=== PATIENT | female | born 1995 | race Two or more races ===

== ENCOUNTER 2025-03-17 15:21 | Emergency (ER) | payer OTHER ==
[~2025-03-17] VITALS: Ht 162.6 cm; Wt 54.4 kg
[2025-03-17] MEDS ORDERED: GABA300C PO (15:28)
[2025-03-17] MEDS ORDERED: METF-440 PO (15:28)
[2025-03-17 16:21] LABS: PLATELET COUNT (AUTO) 263 K/uL (179-408); RED BLOOD CELL COUNT(AUTO) 5.04 MIL/uL (3.63-4.92); RED CELL DISTRIBUTION WIDTH 15.8 % (12.3-17.7); WHITE BLOOD COUNT (AUTO) 7.7 K/uL (3.8-11.8)
[2025-03-17 16:29] LABS: CREATININE 0.4 mg/dL (0.6-1.3); SODIUM SERUM 137 mmol/L (136-145); UREA NITROGEN, BLOOD 17 mg/dL (7-18)
[2025-03-17 16:35] LABS: ASPARTATE AMINOTRANSFERASE 6 U/L (15-37); TOTAL PROTEIN, SERUM 7.4 g/dL (6.4-8.2)
[2025-03-17 16:36] LABS: *BILIRUBIN,URIN NEGATIVE (NEGATIVE); *BLOOD, URINE NEGATIVE (NEGATIVE); *COLOR,URINE YELLOW (YELLOW); *KETONES,URINE 4+ (NEGATIVE); *PROTEIN,URINE 1+ (NEGATIVE); *UROBILINOGEN,URINE 1.0 E.U./dl (NORMAL); LEUKOCYTE ESTERASE ,URINE TRACE (NEGATIVE); NITRITE, URINE NEGATIVE (NEGATIVE); UGLUCOSE 2+ (NEGATIVE)
[2025-03-17 16:38] LABS: *CLARITY,URINE SLIGHTLY CLOUDY (CLEAR)
[2025-03-17 16:39] LABS: *URINE HCG, QUAL NEGATIVE (NEGATIVE)
[2025-03-17 16:48] LABS: SQUAMOUS EPITHELIAL CELL,UR FEW /HPF (NONE SEEN); YEAST,URINE MODERATE /HPF (NONE SEEN)
[2025-03-17] MEDS ORDERED: CEFTRIAXONE /D5W 50ML IVPB **ER PYXIS IV ONE (18:04)
[2025-03-17] MEDS: CEFTRIAXONE 1 G in IV DEXTROSE 5% 50 ML IV ONE (18:05)
[2025-03-17 18:22] LABS: ABG BASE EXCESS -3.1 mmol/L (-2.0-3.0); ABG HCO3 20.3 mmol/L (21.0-28.0); ABG PCO2 31.5 mmHg (32.0-45.0); ABG PH 7.426 (7.350-7.450); ABG PO2 109.0 mmHg (83.0-108.0); ABG SITE LEFT BRACHIAL; ABG TOTAL HEMOGLOBIN 13.8 G/dL (12.0-16.0); AaDO2 98.1 mmHg; FIO2 21.0 %
[2025-03-17] MEDS ORDERED: HYDROMORPHONE 1 MG/1 ML DISP.SYRIN ONE (18:53)
[2025-03-17] MEDS: HYDROMORPHONE 1 MG/1 ML DISP.SYRIN IV ONE (18:59)
[2025-03-17] MEDS ORDERED: FLAS1KIT2 TP (19:29)
[2025-03-17] MEDS ORDERED: FLAS1EAC2 TP (19:29)
[2025-03-17] MEDS ORDERED: INSULIN REGULAR, HUMAN 1000 UNIT/10 ML VIAL ONE (19:40)
[2025-03-17] MEDS: INSULIN REGULAR, HUMAN 1000 UNIT/10 ML VIAL IV ONE (19:48)
[2025-03-17] MEDS: IV NS 1000 ML 1,000 ML IV ONE (19:48)
[2025-03-17] MEDS ORDERED: IOHEXOL 300MG/ML 100 ML INFUS..BTL ONE (20:03)
[2025-03-17] MEDS ORDERED: IV NORMAL SALINE 250 ML IV ONE (20:03)
[2025-03-17] MEDS ORDERED: SWABABLE VALVE TRANSFER SET EA MC ONE (20:03)
[2025-03-17] MEDS ORDERED: ONDANSETRON 4 MG/2 ML VIAL ONE (23:42)
[2025-03-17] MEDS ORDERED: MORPHINE SULFATE 2 MG/1 ML DISP.SYRIN ONE ×2 (23:43→23:44)
[2025-03-17] MEDS: ONDANSETRON 4 MG/2 ML VIAL IV ONE (23:48)
[2025-03-17] MEDS: MORPHINE SULFATE 2 MG/1 ML DISP.SYRIN IV ONE (23:48)
[2025-03-18] MEDS ORDERED: MORPHINE SULFATE 2 MG/1 ML DISP.SYRIN ONE (08:43)
[2025-03-18] MEDS ORDERED: INSULIN REGULAR, HUMAN 1000 UNIT/10 ML VIAL ONE (08:44)
[2025-03-18] MEDS: MORPHINE SULFATE 2 MG/1 ML DISP.SYRIN IV ONE (08:52)
[2025-03-18] MEDS: INSULIN REGULAR, HUMAN 1000 UNIT/10 ML VIAL IV ONE (08:55)
[2025-03-18 09:05] VITALS: O2SAT 97
== END 2025-03-18 09:36 | disposition short-term general hospital (02) ==
LOC: ER 15:21
DX: E11.9 Type 2 diabetes mellitus without complications (principal); R79.89 Other specified abnormal findings of blood chemistry; R10.31 Right lower quadrant pain; R53.1 Weakness; R00.0 Tachycardia, unspecified; Z79.84 Long term (current) use of oral hypoglycemic drugs; Z79.899 Other long term (current) drug therapy
CPT/HCPCS: 99285; 74177; 96365; 96375; 96361; 80076; 80048; 81001; 82009; 84703; 83735; 85025; 85379; 87086; 36415; 82803; 93005; 84681; 36600 ×2; 82962; 96376; J0696; J2405; Q9967; J1171; J2270 ×2; J1815 ×2; J7040; A4606; A4663